=== PATIENT | male | born 1960 | race Caucasian/White ===

== ENCOUNTER 2018-10-29 13:54 | Emergency (ER) | payer MEDICARE ==
[~2018-10-29] VITALS: Ht 180.3 cm; Wt 146.8 kg
[2018-10-29 14:50] LABS: CLARITY,URINE CLOUDY (Clear); COLOR,URINE YELLOW (Yellow); GLUCOSE, URINE NEGATIVE (Neg); KETONES,URINE NEGATIVE (Neg); LEUKOCYTE ESTERASE ,URINE NEGATIVE (Neg); NITRITES, URINE NEGATIVE (Neg); OCCULT BLOOD,URINE LARGE (Neg); PROTEIN,URINE NEGATIVE (Neg)
[2018-10-29 14:55] LABS: UA COLLECTION TYPE NON-SPECIFIED
[2018-10-29 14:56] LABS: LYMPHOCYTES # (AUTO) 1.6 X10'3 (1.1-4.8); MONOCYTES # (AUTO) 1.1 X10'3 (0-0.9); MONOCYTES % (AUTO) 6.7 % (2-12)
[2018-10-29 14:57] LABS: BASOPHILS # (AUTO) 0.1 X10'3 (0-0.2); BASOPHILS % (AUTO) 0.4 % (0-1); EOSINOPHILS % (AUTO) 0.2 % (0-6); HEMATOCRIT 45.6 % (42.0-52.0); HEMOGLOBIN 15.1 g/dl (14.0-17.9); MEAN CORPUSCULAR HEMOGLOBIN 29.1 PG (27.0-31.0); MEAN CORPUSCULAR HGB CONC 33.1 g/dL (33.0-36.5); MEAN CORPUSCULAR VOLUME 87.9 FL (78-98); MEAN PLATELET VOLUME 7.9 FL (7.4-10.4); NEUTROPHILS # (AUTO) 13.4 X10'3 (1.8-7.7); NEUTROPHILS % (AUTO) 82.7 % (42-75); PLATELET COUNT 300 X10'3 (140-440); RED BLOOD COUNT 5.19 X10'6 (4.70-6.10); RED CELL DISTRIBUTION WIDTH 13.9 % (11.5-14.5); WHITE BLOOD COUNT 16.2 X10'3 (4.5-11.0)
[2018-10-29 14:58] LABS: BACTERIA,URINE 2+ /HPF (Neg); MUCUS STRANDS MODERATE /LPF (Neg); SQUAMOUS EPITHELIAL CELL,UR MODERATE /LPF (FEW)
[2018-10-29 14:59] LABS: WBC,URINE 0-4 /HPF (0-4)
[2018-10-29] MEDS ORDERED: normal saline 1000ML IV soln IVB ONE ×2 (15:05→16:45)
[2018-10-29] MEDS ORDERED: morphine 4 MG/ML inj SYRINge IV PRN (15:05)
[2018-10-29] MEDS ORDERED: ondansetron/PF 4mg/2ml inj IV ONE (15:05)
[2018-10-29 15:11] LABS: ALANINE AMINOTRANSFERASE 39 U/L (12-78); ALBUMIN 3.7 G/DL (3.4-5.0); ALBUMIN/GLOBULIN RATIO 0.9 (1.1-1.5); ALKALINE PHOSPHATASE 68 IU/L (46-116); ANION GAP 12 (8-16); ASPARTATE AMINO TRANSFERASE 17 U/L (10-37); BILIRUBIN,TOTAL 0.6 MG/DL (0.1-1.0); BLOOD UREA NITROGEN 12 MG/DL (7-18); CALCIUM 9.3 MG/DL (8.5-10.1); CHLORIDE 106 MMOL/L (99-107); GLUCOSE 128 MG/DL (70-104); POTASSIUM 3.5 MMOL/L (3.5-5.1); SODIUM 142 MMOL/L (135-145); TOTAL CARBON DIOXIDE 23.9 MMOL/L (24-32); TOTAL PROTEIN 7.7 G/DL (6.4-8.2); eGFR 77 ML/MIN
[2018-10-29] MEDS ORDERED: iohexol 300mg/ml 100ml inj. ONE (15:44)
[2018-10-29] MEDS ORDERED: ONDA4TAB6 PO (16:43)
[2018-10-29] MEDS ORDERED: HYDR-4383 PO (16:43)
[2018-10-29] MEDS ORDERED: NAPR-56 PO (16:43)
[2018-10-29] MEDS ORDERED: FLO0.4C PO (16:43)
[2018-10-29] MEDS ORDERED: ketorolac trometh. 30mg/ml inj. IV ONE (16:45)
[2018-10-29] MEDS ORDERED: tamsulosin 0.4mg capsule PO ONE (16:45)
[2018-10-29 17:20] VITALS: BP 187/106
== END 2018-10-29 17:20 | disposition home or self-care (01) ==
LOC: ER 13:55
DX: N20.0 Calculus of kidney (principal); R10.31 Right lower quadrant pain; R30.0 Dysuria; J44.9 Chronic obstructive pulmonary disease, unspecified; Z88.8 Allergy status to other drugs, medicaments and biological substances; Z79.899 Other long term (current) drug therapy
CPT/HCPCS: 36415; 74177; 80053; 81001; 85025; 85610; 96374; 96375; 99284; J1885; J2270; J2405; J7030; Q9967